=== PATIENT | female | born 1940 | race Caucasian/White ===

== ENCOUNTER → 2016-10-20 | Outpatient (CLI) | payer OTHER ==
[~2016-10-20] MED LIST: AMBIEN 5 MG TABL5 MG PO; AMLODIPINE BESY10 MG PO; ASPIRIN EC81 M1 PO; ATIVAN0.5 MG PO; BACTRIM DS TAB1 EACH PO; BACTRIM OR; BACTROBAN NASAL1 GM; BISOPROLOL FUMAR5 MG; CELEXA 20 MG TA20 M1; GABAPENTIN100 MG; HCTZ; HYDROXYZINE HCL10 M1 PO; LEXAPRO 10 MG T10 MG PO; MICARDIS 80 MG80 MG PO; MIRALAX255 GM; NORVASC 5 MG TAB5 MG PO; NYSTATIN 1100000 U/M PO; ORAMORPH SR15 M1; OXYBUTYNIN 5 MG5 M1; OXYCODONE HCL 55 MG PO; PENICILLIN VK250 MG PO; TRAMADOL 50 MG50 MG PO; VOLTAREN GEL 1100 G1 TOP; ZIAC 2.5-6.251 EACH PO
== END ==
LOC: RAD 11:59 → PULREHAB 11:59
DX: R06.00 Dyspnea, unspecified (principal); R06.02 Shortness of breath

== ENCOUNTER → 2016-10-23 | Outpatient (CLI) | payer OTHER ==
[2016-10-23 11:59] LABS: ABG SAMPLE TYPE ARTERIAL; BE(vivo) 0.5 mmol/L (-2 to +3); LACTATE 1.74 mmol/L (0.5-2.0); O2(CT) 19.2 mL/dL (15.0-23.0); PCO2 40.1 mmHg (35.0-45.0); PO2 71.4 mmHg (80.0-100.0); pH 7.413 (7.360-7.450); sO2 94.6 % (92.0-98.0); tCO2 26.3 mmol/L (24.0-30.0)
[2016-10-23 12:01] LABS: STICK SITE L.BRACHIAL
== END ==
LOC: PUL 11:37
PROVIDERS: Internal Medicine Pulmonary Disease
DX: R06.00 Dyspnea, unspecified (principal)

== ENCOUNTER → 2016-10-29 | Outpatient (CLI) | payer OTHER | LOC: SLEEPLAB 18:54 | DX: G47.33 Obstructive sleep apnea (adult) (pediatric) (principal) ==

== ENCOUNTER → 2016-11-10 | Outpatient (CLI) | payer OTHER | LOC: SLEEPLAB 21:16 | DX: G47.30 Sleep apnea, unspecified (principal) ==

== ENCOUNTER → 2016-12-06 | Outpatient (CLI) | payer OTHER | LOC: RAD 12:25 | DX: J44.9 Chronic obstructive pulmonary disease, unspecified (principal) ==

== ENCOUNTER → 2017-03-15 | Outpatient (CLI) | payer OTHER ==
[~2017-03-15] MED LIST changes: +ACCUNEB SO1.25 MG/1 INH; +ANORO ELLIPTA1 EACH; +ANORO ELLIPTA1 EACH INH; +ASPIR 8181 MG PO; +ATORVASTATIN CA40 MG PO; -BISOPROLOL FUMAR5 MG; +BISOPROLOL FUMAR5 MG PO; +CELEXA20 MG PO; +CLEOCIN HCL150 MG PO; +FLOMAX0.4 MG PO; +HYDROCODON-ACE1 EAC8 PO; +LEVAQUIN 500 M500 M2 PO; +MUCINEX600 MG PO; +OXYGEN NASAL; +PREDNISONE 20 M20 MG PO; +PROMS25 WY RECTAL; +QVAR REDIHALE10.6 G1 INH; +VENTOLIN HFA 1818 GM INH
== END ==
LOC: RAD 14:01
DX: J98.11 Atelectasis (principal); R91.8 Other nonspecific abnormal finding of lung field

== ENCOUNTER → 2017-03-24 | Outpatient (CLI) | payer OTHER | LOC: SLEEPLAB 15:48 | DX: G47.33 Obstructive sleep apnea (adult) (pediatric) (principal) ==

== ENCOUNTER 2017-04-22 09:48 | Inpatient (IN) | payer OTHER ==
[~2017-04-22] VITALS: Ht 157.5 cm; Wt 61.7 kg
--- NOTE | ~2017-04-22 | HC ---
[facility] [place] [address] CONSULTATION Name: ANAND POON Room #: 364-P ADM IN M.R.#: [id number] Admission: 04/22/17 Attend Phys: Jerel Zhang MD Discharge: Date of : 40 Report #: [id number] THIS REPORT FOR: //name// CC: [facility] Jerel Zhang MD DATE OF SERVICE: 04/22/2017 REASON FOR CONSULTATION: Otolaryngic followup with recent exacerbation of chronic obstructive pulmonary disease. HISTORY OF PRESENT ILLNESS: The patient is a 76-year-old female presenting to the Emergency Department with an exacerbation of her chronic obstructive pulmonary disease, complaining of shortness of breath beginning about 2:00 this morning. She felt that this gave her a panic attack. She felt that it was hard to handle her secretions. She has had no dysphagia for solids or liquids. The patient underwent a laryngoscopy with excision of Carol space edema on 04/20/2017. She was instructed strict vocal rest and has been compliant with this. She had done well through the course of Sunday and Sunday, but during the night began noticing increasing shortness of breath. The patient has chronic COPD and is on 2 liter home oxygen. She did try the oxygen, but felt that this was not relieving the symptoms and presented. She did not have any systemic symptoms of fever, chills, or night sweats. She had no other upper respiratory symptoms. Chest x-ray was done in the Emergency Department showing a right basilar non-consolidative infiltration as well as an indeterminate right costophrenic angle lucency, 5 cm. This is a new finding from a chest x-ray done in March. Pulmonary cavitation was questioned. The patient has been seen by her director advanced, Dr. Mccarthy. In the Emergency Department, the patient was evaluated and treated with respiratory treatments including albuterol and racemic epinephrine; in addition IV Solu-Medrol was given. The patient did notice an improvement in symptoms and now at 1630 when she is being evaluated in her hospital room, symptoms are much improved. The patient has been begun on empiric Levaquin 500 mg every day by Dr. Mccarthy. There was no sign of pulmonary embolization. EKG was also done showing nonspecific ST and T-wave abnormalities. There were no significant acute changes. Serum electrolytes were normal with the exception of an elevated glucose on IV. CBC showed a white count of 8600 with a hemoglobin of 3.3. ABG was also done showing a pO2 of 94 with a pCO2 of 42 and a pH of 7.36. PAST MEDICAL HISTORY: Significant for: 1. Chronic obstructive pulmonary disease, oxygen dependent; bilateral Carol space edema secondary to tobacco abuse, status post laryngoscopy uncomplicated [address] [address] CONSULTATION Name: ANAND POON Room #: 364-P ADM IN M.R.#: [id number] Admission: 04/22/17 Attend Phys: Jerel Zhang MD Discharge: Date of : 40 Report #: [id number] on 04/20/2017. 2. Hypertension. 3. Tobacco abuse. 4. Anxiety and depression. MEDICATIONS: In her MAR. ALLERGIES: NAPROSYN. SOCIAL HISTORY: She has a greater than 40-year pack-year history of smoking and continues to smoke even despite admonitions to stop. She does use alcohol only rarely. She has a supportive family. REVIEW OF SYSTEMS: She is no longer complaining of shortness of breath in her hospital room. She is having some chest discomfort from her rapid breathing over the course of the last 12 hours. PHYSICAL EXAMINATION: VITAL SIGNS: Show a temperature of 98.4, pulse of 81, blood pressure 136/63, respiration 22, 93% saturation. HEAD: She is normocephalic. EYES: Pupils equal, round, reactive to light. OTOLOGIC: Normal tympanic membrane. NOSE: Deviated septum, nonobstructing, no congestion. ORAL CAVITY: No mucosal lesions, no hypopharyngeal swelling. NECK: Without adenopathy. Larynx is nontender. NEUROLOGIC: Cranial nerves 2-12 intact. Motor and sensory and cerebellar exams are normal. ASSESSMENT: 1. Exacerbation of chronic obstructive pulmonary disease with shortness of breath and anxiety today, improved post treatment. 2. New cavitary lesion on right chest x-ray that will require further workup. We will defer to Dr. Mccarthy, her director advanced. 3. Carol space edema, status post direct laryngoscopy with excision on 04/20/2017. The patient did well postoperatively until this morning. Pathology is pending. 4. Severe tobacco abuse. PLAN: 1. Admission for supportive care. 2. Oxygenation. 3. The patient has been consulted to her director advanced, Dr. Mccarthy. She will require further workup of this finding on chest x-ray. 4. We will plan to follow along. I would like her to continue voice rest to complete 72 hours, which would be Sunday. [address] [address] CONSULTATION Name: ANAND POON Room #: 364-P ADM IN M.R.#: [id number] Admission: 04/22/17 Attend Phys: Jerel Zhang MD Discharge: Date of : 40 Report #: [id number] 5. Continue IV Solu-Medrol or Decadron as well as empiric antibiotics. I appreciate the consultation. <ELECTRONICALLY SIGNED> By: Randal Franco MD 04/23/17 1715 1637 [id number] Randal Franco MD /nt
--- NOTE | ~2017-04-22 | H ---
[facility] [place] [address] HISTORY AND PHYSICAL Name: ANAND POON Room #: 364-P ADM IN M.R.#: [id number] Admission: 04/22/17 Attend Phys: Jerel Zhang MD Discharge: Date of : 40 Report #: [id number] THIS REPORT FOR: //name// CC: Glen Zhang DATE OF SERVICE: 04/22/2017 CHIEF COMPLAINT: Shortness of breath. HISTORY OF PRESENT ILLNESS: The patient is a 76-year-old female who was admitted through the Emergency Room with shortness of breath. Symptoms began in the middle of the night on the day of presentation, she described as "panic attack." She had a lot of cough and congestion. She had recently undergone the ENT procedure with what sounds like some type of biopsy of the larynx. She has had no fever or chills, denied any chest pain. PAST MEDICAL HISTORY: COPD, obstructive sleep apnea on CPAP, GERD, carotid artery disease, peripheral arterial disease. She has had a femoral endarterectomy and a previous fem-pop bypass in 2011. History of MRSA skin lesion, history of C. diff, hypertension, and dyslipidemia. PAST SURGICAL HISTORY: As above. FAMILY HISTORY: Noncontributory. SOCIAL HISTORY: A 90-[id number] history of smoking, still a current smoker. Denies chronic alcohol use. ALLERGIES: CEFUROXIME, NITROFURANTOIN, NAPROXEN. MEDICATIONS: Clindamycin, Ambien, albuterol, Lipitor, hydrocodone, bisoprolol, hydroxyzine, QVAR, Celexa, Flomax, aspirin. REVIEW OF SYSTEMS: She complains of a sore throat, otherwise no headache, chest pain, abdominal pain, nausea, vomiting, diarrhea, constipation, dysuria, syncope. OBJECTIVE: VITAL SIGNS: Temperature 36.7, pulse 77, respirations 20, blood pressure 127/54, O2 sat 97% on 3 liters nasal cannula. GENERAL: She is awake and alert, in no distress. HEAD AND NECK: Unremarkable. LUNGS: Have expiratory wheezing. HEART: Regular, no murmur. ABDOMEN: Soft, normoactive bowel sounds. [address] [address] HISTORY AND PHYSICAL Name: ANAND POON Room #: 364-P [facility] IN M.R.#: [id number] Admission: 04/22/17 Attend Phys: Jerel Zhang MD Discharge: Date of : 40 Report #: [id number] EXTREMITIES: No edema. NEUROLOGIC: Motor strength 4/[address] and LABORATORY DATA: Reviewed. ASSESSMENT: 1. Chronic obstructive pulmonary disease exacerbation. 2. Hypertension. 3. Recent laryngoscopy. 4. Peripheral artery disease. PLAN: Steroids, nebulizers, and home medications have been ordered. Dr. rFanco has assessed her and pathology is pending. I have asked Dr. Mccarthy to see her and comment on the CT. <ELECTRONICALLY SIGNED> By: Glen Delgado MD 04/24/17 0948 1248 1259 Glen Delgado MD /nt
--- NOTE | ~2017-04-22 | D ---
[facility] [place] [address] DISCHARGE SUMMARY Name: ANAND POON Room #: 364-P [facility] IN M.R.#: [id number] Admission: 04/22/17 Attend Phys: Jerel Zhang MD Discharge: 04/25/17 Date of : 40 Report #: [id number] THIS REPORT FOR: //name// CC: Glen Zhang FINAL DIAGNOSIS: Chronic obstructive pulmonary disease exacerbation. HOSPITAL COURSE: This patient was admitted with shortness of breath. She was diagnosed and treated for COPD exacerbation. CT of the chest was obtained. Dr. Mccarthy reviewed this with the patient. There was some question of a pulmonary nodule that he will follow as an outpatient with CT in [address] Franco followed her up from recent laryngeal biopsy. Pathology was negative. She was treated symptomatically. PHYSICAL EXAMINATION: GENERAL: On the day of discharge, she was awake and alert, in no distress. VITAL SIGNS: Stable. LUNGS: Had expiratory wheezing. HEART: Regular. ABDOMEN: Soft, normoactive bowel sounds. EXTREMITIES: No edema. DISPOSITION: She will be discharged home with diet, activity as tolerated. Resume all home medications with Levaquin for 1 week and a prednisone taper. Follow up with me in 2 weeks. She is instructed to stop smoking. <ELECTRONICALLY SIGNED> By: Glen Delgado MD 04/27/17 0921 1344 1355 Glen Delgado MD /regulo
--- NOTE | ~2017-04-22 | EKG ---
[place] [address] [facility] [address] ELECTROCARDIOGRAM REPORT Name: ANAND POON Room #: 364-P ADM IN M.R.#: [id number] Admission: 04/22/17 Attend Phys: Jerel Zhang MD Discharge: Date of : 40 Report #: [id number] THIS REPORT FOR: //name// [facility] ED Test Date: 2017-04-22 Test Time: 10:06:35 Pat Name: ANAND POON Department: Room: 364 Gender: F Realtime Court Reporter: Georgina BEAL : 1940 Requested By: Martinez Ryan Order Number: [id number] MD: James Lutz Measurements Intervals [place] Rate: 85 P: 75 [place]: 124 QRS: 47 QRSD: 90 T: 69 QT: 378 QTc: 450 Interpretive Statements Sinus rhythm Nonspecific ST and T wave abnormality Compared to ECG 10/05/2009 17:24:27 Anterolateral T wave inversion is no longer present Electronically Signed On 04-22-2017 13:48:31 CDT by James Lutz [email or web address] <ELECTRONICALLY SIGNED> By: James Lutz MD, [facility] 04/22/17 1348 1006 1006 James Lutz MD, [facility] /EPI
--- NOTE | ~2017-04-22 | HC ---
[facility] [place] [address] CONSULTATION Name: ANAND POON Room #: 364-P [facility] IN M.R.#: [id number] Admission: 04/22/17 Attend Phys: Jerel Zhang MD Discharge: 04/25/17 Date of : 40 Report #: [id number] THIS REPORT FOR: //name// CC: Glen Zhang DATE OF SERVICE: 04/23/2017 REFERRING PROVIDERS: Dr. Glen Delgado, Dr. Joby Mccarthy as well as Dr. Randal Franco. REASON FOR CONSULTATION: COPD exacerbation. CHIEF COMPLAINT: Shortness of breath and cough. HISTORY OF PRESENT ILLNESS: Our group was asked to see the patient in consultation while hospitalized at [facility]. The patient is a very pleasant 76-year-old woman presented to the Emergency Department yesterday morning with complaints of increasing shortness of breath and cough. Apparently, he had had a laryngeal procedure done on Sunday, 20 April and subsequently doing reasonably well; however, the following evening, had increasing shortness of breath, which she describes as a panic attack, some cough productive of germain sputum, presented to the Emergency Department. A chest radiograph revealed what appeared to be a basilar infiltrate. CT of the chest revealed diffuse emphysema, some basilar fibrosis and some scattered small pulmonary nodules. She was started on Levaquin for acute exacerbation of COPD and subsequently also on bronchodilators. She notes typically being on Anoro and QVAR at home as well as supplemental oxygen at 2 liters nasal cannula. She notes that the DuoNeb she has been receiving has actually caused more anxiety and agitation, not relieved a lot of her dyspnea. No fevers, chills or sweats. As mentioned, she has some cough productive of some germain sputum at this time, but she was able to produce for me during my interview. CURRENT MEDICATIONS: 1. DuoNeb q.4 hours. 2. Aspirin 81 mg daily. 3. Atarax p.r.n. 4. Lipitor 40 mg daily. 5. Bisoprolol 2.5 mg daily. 6. Pulmicort 0.5 mg twice daily, nebulized. 7. Celexa 20 mg at bedtime. 8. Cleocin 300 mg t.i.d. 9. Enoxaparin 40 mg daily. 10. Flomax 0.4 daily. 11. Hydrocodone p.r.n. 12. Levaquin 500 mg daily. [address] [address] CONSULTATION Name: ANAND POON Room #: 364-P [facility] IN M.R.#: [id number] Admission: 04/22/17 Attend Phys: Jerel Zhang MD Discharge: 04/25/17 Date of : 40 Report #: [id number] 13. Solu-Medrol 62.5 q.8 hours. 14. Norvasc 10 mg daily. PAST MEDICAL HISTORY: 1. Severe COPD, emphysema predominant. 2. Obstructive sleep apnea, apnea-hypopnea index of 19.5. 3. Chronic hypoxemic respiratory failure. 4. 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 5. Chronic back pain. 6. Coronary artery disease. 7. Depression. 8. Hyperlipidemia. 9. Peripheral vascular disease. 10. History of ventral hernia. 11. History of peripheral artery atherectomy. 12. History of fem-pop bypass. SOCIAL HISTORY: The patient was an active smoker, about a pack per day. No alcohol consumption. FAMILY HISTORY: Negative for any significant pulmonary disease. REVIEW OF SYSTEMS: CONSTITUTIONAL: No fevers, chills or sweats. ENT: No upper respiratory congestion, recent surgery noted. CARDIOVASCULAR: No chest pains, palpitations, some chest tightness. GASTROINTESTINAL: No nausea, vomiting, diarrhea, constipation, abdominal pain, noted ventral hernia. GENITOURINARY: No dysuria, no frequency, hematuria. INTEGUMENT: Denies any new rash. MUSCULOSKELETAL: No joint pains or swelling. PHYSICAL EXAMINATION: VITAL SIGNS: Afebrile, pulse 70s, respiratory rate 20, blood pressure 127/54 and oxygen saturation 97% on 3 liters. GENERAL: This is a pleasant elderly woman, does not appear in distress, resting in bed. HEENT: Clear oropharynx. No thrush, but hoarse voice noted. NECK: Supple, no lymphadenopathy. LUNGS: Diminished, prolonged expiratory phase and diffuse expiratory wheezes noted. CARDIOVASCULAR: Rate is regular. No murmurs appreciated. ABDOMEN: Soft, nontender, no masses, large ventral hernia noted. EXTREMITIES: Warm, 2+ pulses, no edema. LABORATORY DATA: CT scan as described with multiple small nodules and diffuse [address] [address] CONSULTATION Name: ANAND POON Room #: 364-P [facility] IN [facility].#: [id number] Admission: 04/22/17 Attend Phys: Jerel Zhang MD Discharge: 04/25/17 Date of : 40 Report #: [id number] emphysema and some mild pulmonary fibrotic changes. White blood cell count 9000, hemoglobin 13, hematocrit 40, platelet count 260. Sodium 138, potassium 4.1, chloride 102, bicarbonate 26, BUN 17, creatinine 1.1, glucose 117. Troponin was 0.39. Arterial blood gas on 2 liters on admission revealed pH 7.36, pCO2 of 42, pO2 95, bicarbonate 23. IMPRESSION: 1. Acute exacerbation of chronic obstructive pulmonary disease, likely due to lower respiratory infection. 2. Recent laryngeal procedure. 3. Elevated troponin. 4. Sleep apnea. 5. History of coronary and peripheral vascular disease. 6. Chronic hypoxemic respiratory failure. SUGGESTIONS: 1. Continue systemic steroids. 2. Bronchodilators. 3. Continue with Levaquin and clindamycin, might consider discontinuing Levaquin as the patient improves. 4. Follow chest radiographs. 5. We will need some sort of followup imaging regarding pulmonary nodule at some point in the future. 6. Dr. Mccarthy to assume care of this patient tomorrow. <ELECTRONICALLY SIGNED> By: Tank Muhammad MD 04/26/17 1122 1436 1545 Tank Muhammad MD /nt
[~2017-04-22 09:48] MED LIST changes: -ANORO ELLIPTA1 EACH; -ASPIR 8181 MG PO; -LEVAQUIN 500 M500 M2 PO; -MUCINEX600 MG PO; -PREDNISONE 20 M20 MG PO
[2017-04-22 09:51] VITALS: BP 134/69
[2017-04-22 10:06] LABS: HEMOGLOBIN 13.3 gm/dL (12.0-15.0); MCH 26.5 pg (26.0-34.0); MCHC 33.2 g/dL (28.0-37.0); MCV 79.7 fL (80.0-100.0); RBC 5.02 mil/uL (4.20-5.00); RDW 17.2 % (10.5-14.5); WBC 8.6 thou/uL (4.0-11.0)
[2017-04-22 10:08] LABS: BE(vivo) -2.1 mmol/L (-2 to +3); HCO3 23.3 mmol/L (22.0-26.0); PCO2 42.1 mmHg (35.0-45.0); PO2 94.6 mmHg (80.0-100.0); pH 7.361 (7.360-7.450)
[2017-04-22 10:21] LABS: CALCIUM 9.2 mg/dL (8.5-10.1); CREATININE 1.1 mg/dL (0.6-1.0); POTASSIUM 4.1 mmol/L (3.5-5.1)
[2017-04-22 10:30] LABS: TROPONIN-I 0.39 ng/mL (<0.06)
[2017-04-22 14:22] VITALS: BP 136/63
[2017-04-22] MEDS ORDERED: ASPIR 8181 MG PO (14:37)
[2017-04-22] MEDS ORDERED: CLEOCIN HCL150 MG PO (14:41)
[2017-04-22] MEDS ORDERED: AMLODIPINE BESY10 MG PO (15:25)
[2017-04-22 19:42] VITALS: BP 114/55
[2017-04-23 03:05] VITALS: BP 110/54
[2017-04-23 08:00] VITALS: BP 133/67
[2017-04-23 12:26] VITALS: BP 127/54
[2017-04-23 16:13] VITALS: BP 130/57
[2017-04-23 20:08] VITALS: BP 139/63
[2017-04-24] VITALS (7 sets, daily range): BP systolic 134–144; BP diastolic 52–71
[2017-04-24 06:41] LABS: HEMOGLOBIN 12.3 gm/dL (12.0-15.0); MCHC 32.3 g/dL (28.0-37.0); MCV 80.6 fL (80.0-100.0); RBC 4.72 mil/uL (4.20-5.00); WBC 4.8 thou/uL (4.0-11.0)
[2017-04-24 06:51] LABS: CALCIUM 8.9 mg/dL (8.5-10.1); CREATININE 1.1 mg/dL (0.6-1.0); POTASSIUM 4.5 mmol/L (3.5-5.1)
[2017-04-25 04:45] VITALS: BP 124/69
[2017-04-25 07:58] VITALS: BP 135/53
[2017-04-25 10:45] VITALS: BP 132/52
[2017-04-25] MEDS ORDERED: MUCINEX600 MG PO (13:13)
[2017-04-25] MEDS ORDERED: LEVAQUIN 500 M500 M2 PO (13:13)
[2017-04-25] MEDS ORDERED: PREDNISONE 20 M20 MG PO (13:13)
[2017-04-25 13:47] VITALS: BP 132/52
== END 2017-04-25 14:41 | disposition home or self-care (01) | DRG 189 ==
LOC: ER 09:48 → 3W 12:02 → EROBS 12:02 → 3W 13:26
PROVIDERS: Emergency Medicine; Internal Medicine Geriatric Medicine
PROC: 5A09357 Assistance with Respiratory Ventilation, Less than 24 Consecutive Hours, Continuous Positive Airway Pressure (ICD-10-PCS; principal; 2017-04-25)
DX: J96.21 Acute and chronic respiratory failure with hypoxia (principal); J44.1 Chronic obstructive pulmonary disease with (acute) exacerbation; I73.9 Peripheral vascular disease, unspecified; I10 Essential (primary) hypertension; E78.5 Hyperlipidemia, unspecified; K21.9 Gastro-esophageal reflux disease without esophagitis; F32.9 Major depressive disorder, single episode, unspecified; F17.210 Nicotine dependence, cigarettes, uncomplicated; F41.9 Anxiety disorder, unspecified; G47.33 Obstructive sleep apnea (adult) (pediatric); M54.9 Dorsalgia, unspecified; G89.29 Other chronic pain; J22 Unspecified acute lower respiratory infection; I25.10 Atherosclerotic heart disease of native coronary artery without angina pectoris; F41.0 Panic disorder [episodic paroxysmal anxiety]; Z79.899 Other long term (current) drug therapy; Z90.710 Acquired absence of both cervix and uterus; Z98.42 Cataract extraction status, left eye; Z88.8 Allergy status to other drugs, medicaments and biological substances; Z99.81 Dependence on supplemental oxygen
CPT/HCPCS: 10879; 50010; 50101; 62110; 62900; 70005

== ENCOUNTER 2017-07-24 02:48 | Inpatient (IN) | payer OTHER ==
[2017-07-24] VITALS (7 sets, daily range): BP systolic 110–152; BP diastolic 49–67
[~2017-07-24] VITALS: Ht 157.5 cm; Wt 65.1 kg
--- NOTE | ~2017-07-24 | HC ---
[facility] [place] [address] CONSULTATION Name: ANAND POON Room #: 349-I ADM IN M.R.#: [id number] Admission: 07/24/17 Attend Phys: Glen Delgado MD Discharge: Date of : 40 Report #: [id number] THIS REPORT FOR: //name// CC: Glen Delgado DATE OF SERVICE: 07/24/2017 REASON FOR CONSULTATION: Abnormal EKG. HISTORY OF PRESENT ILLNESS: The patient is a 77-year-old woman with a history of significant COPD and hypertension. She has a history of peripheral vascular disease with peripheral revascularization, as well as a known chronic occlusion of the right internal carotid artery. She now presents with fairly sudden onset nausea and vomiting. She thinks that she may have eaten a bad steak for dinner last night. She presented to the emergency department where an EKG demonstrated LVH with repolarization abnormality. I was asked to see her in this regard. She denies chest pain, pressure or ischemic type symptoms. No heart failure symptoms, palpitations, near syncope or syncope. ALLERGIES: She is allergic to CEFUROXIME, NITROFURANTOIN, and NAPROSYN. MEDICATIONS: Albuterol nebulizer, atorvastatin 40 mg daily, bisoprolol 2.5 mg daily, hydroxyzine 10 mg daily, QVAR 2 puffs twice daily, citalopram 20 mg daily, albuterol, Flomax 0.4 mg daily, and aspirin 81 mg daily, Anoro Ellipta one inhalation daily, and amlodipine 10 mg daily. PAST MEDICAL HISTORY: Medical records have been reviewed and include a history of carotid disease, fem-popliteal bypass in 2012, dyslipidemia, sleep apnea, severe COPD. SOCIAL HISTORY: She is an ongoing smoker. FAMILY HISTORY: Unremarkable for premature coronary disease. REVIEW OF SYSTEMS: All systems negative except as that noted above. PHYSICAL EXAMINATION: GENERAL: A pleasant woman in no distress. VITAL SIGNS: Blood pressure is 150/60, heart rate is 76 and regular. She is afebrile, 5 feet 2 inches tall, 143 pounds. HEENT: There are neither xanthelasma, subcutaneous xanthomata, oral mucosal or digital cyanosis or kyphoscoliosis present. CHEST: Clear to auscultation and percussion. CARDIAC: Regular rate and rhythm with normal S1, S2. NECK: Jugular venous pressure is not elevated. ABDOMEN: Soft and nontender. Ventral hernias are noted. [facility] [address] [place] [address] CONSULTATION Name: ANAND POON Room #: 349-I [facility] IN ..#: [id number] Admission: 07/24/17 Attend Phys: Glen Delgado MD Discharge: Date of : 40 Report #: [id number] EXTREMITIES: Without cyanosis or clubbing. Radial pulses are 2+. NEUROLOGIC: She is alert with a nonfocal exam. LABORATORY DATA: Sodium is 139, potassium 3.6, creatinine 1.1, troponin of 0. White count 12.8, hemoglobin 12, hematocrit 38, platelet count 275. IMAGING DATA: CT of the abdomen demonstrates several ventral hernias, no evidence of bowel obstruction, and fatty infiltration of the liver. IMPRESSION: 1. Nausea, vomiting; abdominal pain, possible gastroenteritis. 2. Hypertension. 3. Abnormal EKG consistent with left ventricular hypertrophy with strain. 4. Peripheral vascular disease with peripheral revascularization; known carotid occlusion. RECOMMENDATIONS: 1. Resume usual blood pressure medicines. 2. No further cardiovascular testing at this point. I suspect that her presenting symptoms are on the basis of an acute GI illness such as gastroenteritis. I have discussed these issues with the patient. Thank you for asking me to participate in her care. <ELECTRONICALLY SIGNED> By: James Lutz MD, [facility] 07/24/17 1637 0745 0913 James Lutz MD, FACC /nt
--- NOTE | ~2017-07-24 | EKG ---
[place] [address] [facility] [place] [address] ELECTROCARDIOGRAM REPORT Name: ANAND POON Room #: 349-I ADM IN M.R.#: [id number] Admission: 07/24/17 Attend Phys: Glen Delgado MD Discharge: Date of : 40 Report #: [id number] THIS REPORT FOR: //name// [facility] ED Test Date: 2017-07-24 Test Time: 04:48:31 Pat Name: ANAND POON Department: Room: 349 I Gender: F Laboratory Engineer: ANN : 1940 Requested By: Gilbert Munguia Order Number: [id number] MD: James Lutz Measurements Intervals [place] Rate: 75 P: 90 [place]: 168 QRS: 60 QRSD: 85 T: 197 QT: 421 QTc: 471 Interpretive Statements Sinus rhythm LVH with repolarization abnormality versus ischemia Compared to ECG 04/22/2017 10:06:35 No significant change was found Electronically Signed On 07-24-2017 15:49:17 CDT by James Lutz [email or web address] <ELECTRONICALLY SIGNED> By: James Lutz MD, [facility] 07/24/17 1549 0448 0448 James Lutz MD, [facility] /EPI
--- NOTE | ~2017-07-24 | EKG ---
[place] [address] [place] [address] ELECTROCARDIOGRAM REPORT Name: ANAND POON Room #: 349-I ADM IN .R.#: [id number] Admission: 07/24/17 Attend Phys: Glen Delgado MD Discharge: Date of : 40 Report #: [id number] THIS REPORT FOR: //name// [facility] ED Test Date: 2017-07-24 Test Time: 03:14:49 Pat Name: ANAND POON Department: Room: Gender: F Supervisor [employer]: ANN : 1940 Requested By: Gilbert Munguia Order Number: [id number] MD: James Lutz Measurements Intervals [place] Rate: 66 P: 86 [place]: 169 QRS: 62 QRSD: 95 T: 106 QT: 434 QTc: 455 Interpretive Statements Sinus rhythm LVH with repolarization abnormality Compared to ECG 04/22/2017 10:06:35 Lateral T wave inversion is now present Electronically Signed On 07-24-2017 15:48:44 CDT by James Lutz [email or web address] <ELECTRONICALLY SIGNED> By: James Lutz MD, [facility] 07/24/17 1548 3 3 James Lutz MD, [facility] /EPI
--- NOTE | ~2017-07-24 | H ---
[facility] [place] [address] HISTORY AND PHYSICAL Name: ANAND POON Room #: 349-I ADM IN M.R.#: [id number] Admission: 07/24/17 Attend Phys: Glen Delgado MD Discharge: Date of : 40 Report #: [id number] THIS REPORT FOR: //name// CC: Glen Delgado DATE OF SERVICE: 07/24/2017 CHIEF COMPLAINT: Abdominal pain. HISTORY OF PRESENT ILLNESS: The patient is a 77-year-old female who came to the Emergency Room with abdominal pain. Symptoms awoke her from sleep; earlier this morning, she had pain in the mid abdomen. There was a little episode of nausea and diaphoresis and then she came to the Emergency Room. She has a known history of COPD and wears chronic oxygen at home. She has a history of peripheral vascular disease with prior fem-pop in 2011. She was also noted to have a large ventral hernia. PAST MEDICAL HISTORY: COPD, hypertension, coronary artery disease, peripheral artery disease, prior fem-pop bypass, obstructive sleep apnea, CPAP use, hiatal hernia, GERD, ventral hernia. PAST SURGICAL HISTORY: Hysterectomy, femoral endarterectomy with fem-pop in 2011. FAMILY HISTORY: Noncontributory. SOCIAL HISTORY: A 51-heie-dxua history of smoking. No chronic alcohol use. ALLERGIES: CEFUROXIME, NITROFURANTOIN, AND NAPROXEN. MEDICATIONS: Mucinex, Ambien, DuoNeb, Lipitor, hydrocodone, bisoprolol, hydroxyzine QVAR, Celexa, albuterol, Flomax, aspirin, amlodipine, Anoro Ellipta inhaler. REVIEW OF SYSTEMS: Denies headache, chest pain, shortness of breath, dysuria, myalgias, arthralgias, syncope or fall. OBJECTIVE: VITAL SIGNS: Temperature 36.8, pulse 58, respirations 20, blood pressure was /56, O2 sat 90% on 2 liters nasal cannula. GENERAL: She is awake and alert, in no distress. HEAD AND NECK: Unremarkable. LUNGS: Clear. HEART: Regular. ABDOMEN: Protuberant, soft, normoactive bowel sounds. There is a reducible ventral hernia in the midline. [facility] [address] [place] [address] HISTORY AND PHYSICAL Name: ANAND POON Room #: [address] [place] [address] [place] [facility].#: [id number] Admission: 07/24/17 Attend Phys: Glen Delgado MD Discharge: Date of : 40 Report #: [id number] EXTREMITIES: No cyanosis, clubbing or edema. NEUROLOGIC: Motor strength is 5/5 throughout. She has been assessed by Dr. Lutz, he does not feel further cardiac workup is indicated. LABORATORY DATA: CT of the abdomen, there were gastric and bowel loops containing ventral hernias. There was no bowel obstruction or evidence of acute strangulation. ASSESSMENT: 1. Abdominal pain. 2. Ventral hernia. 3. Chronic obstructive pulmonary disease. 4. Hypertension. 5. Peripheral artery disease. PLAN: I will advance her diet this morning and resume her home medications. If she is able to tolerate well, we will discharge her later today with the consideration of outpatient surgical followup. <ELECTRONICALLY SIGNED> By: Glen Delgado MD 07/24/17 1252 [id number] Glen Delgado MD /nt
[~2017-07-24 02:48] MED LIST changes: +ASPIR 8181 MG PO; +LEVAQUIN 500 M500 M2 PO; +MUCINEX600 MG PO; +PREDNISONE 20 M20 MG PO
[2017-07-24 03:17] LABS: URINE BILIRUBIN NEGATIVE (Negative); URINE BLOOD NEGATIVE (Negative); URINE CLARITY CLEAR; URINE COLOR YELLOW; URINE GLUCOSE-RANDOM* NEGATIVE (Negative); URINE KETONES NEGATIVE (Negative); URINE LEUKOCYTES-REFLEX NEGATIVE (Negative); URINE NITRITE-REFLEX NEGATIVE (Negative); URINE PROTEIN (DIPSTICK) NEGATIVE (Negative); URINE UROBILINOGEN 0.2 E.U./dl (0.2-1.0)
[2017-07-24 03:40] LABS: BASOPHILS 0.4 % (0.0-2.0); EOSINOPHILS 1.5 % (0.0-3.0); HEMATOCRIT 38.4 % (37.0-47.0); HEMOGLOBIN 12.6 gm/dL (12.0-15.0); LYMPHOCYTES 14.2 % (24.0-44.0); MCH 26.5 pg (26.0-34.0); MCHC 32.8 g/dL (28.0-37.0); MCV 80.8 fL (80.0-100.0); MONOCYTES 5.5 % (1.0-8.0); PLATELET COUNT 275 thou/uL (150-400); POLYS 78.4 % (36.0-66.0); RBC 4.75 mil/uL (4.20-5.00); RDW 16.2 % (10.5-14.5); WBC 12.8 thou/uL (4.0-11.0)
[2017-07-24 03:47] LABS: ANION GAP 10 mmol/L (7-16); BUN 13 mg/dL (7-18); CALCIUM 8.9 mg/dL (8.5-10.1); CHLORIDE 101 mmol/L (98-107); CO2 28 mmol/L (21-32); CREATININE 1.1 mg/dL (0.6-1.0); GLUCOSE 183 mg/dL (74-106); POTASSIUM 3.6 mmol/L (3.5-5.1); SODIUM 139 mmol/L (136-145)
[2017-07-24 03:56] LABS: ALBUMIN 2.9 g/dL (3.4-5.0); LIPASE 138 U/L (73-393); MAGNESIUM 2.3 mg/dL (1.8-2.4); SGOT 14 U/L (15-37); SGPT 18 U/L (30-65); TOTAL BILIRUBIN 0.3 mg/dL (<0.1-1.0); TOTAL PROTEIN 6.9 g/dL (6.4-8.2); TROPONIN-I < 0.04 ng/mL (<0.06)
[2017-07-24 03:57] LABS: APTT 26.9 Seconds (24.5-32.8); PROTIME 9.7 Seconds (9.3-11.4)
[2017-07-24] MEDS ORDERED: ANORO ELLIPTA1 EACH (04:06)
== END 2017-07-24 17:17 | disposition home or self-care (01) | DRG 394 ==
LOC: ER 02:48 → EROBS 05:14 → 3W 05:14 → ENTRNSPT 16:34 → 3W 17:17
PROVIDERS: Emergency Medicine
DX: K43.9 Ventral hernia without obstruction or gangrene (principal); E46 Unspecified protein-calorie malnutrition; I10 Essential (primary) hypertension; E78.5 Hyperlipidemia, unspecified; I73.9 Peripheral vascular disease, unspecified; J44.9 Chronic obstructive pulmonary disease, unspecified; I25.10 Atherosclerotic heart disease of native coronary artery without angina pectoris; G47.33 Obstructive sleep apnea (adult) (pediatric); K21.9 Gastro-esophageal reflux disease without esophagitis; F32.9 Major depressive disorder, single episode, unspecified; Z90.710 Acquired absence of both cervix and uterus; Z98.41 Cataract extraction status, right eye; Z98.42 Cataract extraction status, left eye; Z86.14 Personal history of Methicillin resistant Staphylococcus aureus infection; Z79.82 Long term (current) use of aspirin; Z79.899 Other long term (current) drug therapy; Z88.0 Allergy status to penicillin; Z88.8 Allergy status to other drugs, medicaments and biological substances; Z99.81 Dependence on supplemental oxygen; Z95.828 Presence of other vascular implants and grafts; Z68.26 Body mass index [BMI] 26.0-26.9, adult
CPT/HCPCS: 10879

== ENCOUNTER → 2017-12-14 | Outpatient (CLI) | payer OTHER ==
[~2017-12-14] MED LIST changes: +ANORO ELLIPTA1 EACH
== END ==
LOC: CAT 11:21
DX: K43.9 Ventral hernia without obstruction or gangrene (principal); N28.1 Cyst of kidney, acquired

== ENCOUNTER → 2019-04-04 | Outpatient (CLI) | payer OTHER | LOC: CAT 10:47 | DX: J43.8 Other emphysema (principal); K44.9 Diaphragmatic hernia without obstruction or gangrene; R91.1 Solitary pulmonary nodule ==

== ENCOUNTER → 2019-04-14 | Outpatient (CLI) | payer OTHER | LOC: SJCVC 10:18 | DX: R94.31 Abnormal electrocardiogram [ECG] [EKG] (principal); I10 Essential (primary) hypertension; I65.23 Occlusion and stenosis of bilateral carotid arteries; I25.10 Atherosclerotic heart disease of native coronary artery without angina pectoris; E78.5 Hyperlipidemia, unspecified; G47.33 Obstructive sleep apnea (adult) (pediatric); I71.4 Abdominal aortic aneurysm, without rupture; J44.9 Chronic obstructive pulmonary disease, unspecified; F17.210 Nicotine dependence, cigarettes, uncomplicated; Z79.82 Long term (current) use of aspirin; Z79.899 Other long term (current) drug therapy ==

== ENCOUNTER → 2019-09-04 | Outpatient (CLI) | payer OTHER | LOC: CAT 10:13 | PROVIDERS: ATTEND Internal Medicine | DX: J43.8 Other emphysema (principal); K42.9 Umbilical hernia without obstruction or gangrene; K44.9 Diaphragmatic hernia without obstruction or gangrene; J98.4 Other disorders of lung; R91.1 Solitary pulmonary nodule ==

== ENCOUNTER → 2019-10-15 | Outpatient (CLI) | payer OTHER | LOC: SJCVCIMAG 08:15 | PROVIDERS: ATTEND Internal Medicine | DX: I08.1 Rheumatic disorders of both mitral and tricuspid valves (principal); R94.31 Abnormal electrocardiogram [ECG] [EKG]; I65.23 Occlusion and stenosis of bilateral carotid arteries; I25.10 Atherosclerotic heart disease of native coronary artery without angina pectoris; I10 Essential (primary) hypertension; E78.5 Hyperlipidemia, unspecified; G47.33 Obstructive sleep apnea (adult) (pediatric); I71.4 Abdominal aortic aneurysm, without rupture; F17.200 Nicotine dependence, unspecified, uncomplicated; Z79.899 Other long term (current) drug therapy ==

== ENCOUNTER → 2020-02-20 | Outpatient (CLI) | payer OTHER | LOC: CAT 10:57 | PROVIDERS: ATTEND Internal Medicine | DX: J43.9 Emphysema, unspecified (principal); R91.1 Solitary pulmonary nodule; I70.0 Atherosclerosis of aorta; M25.78 Osteophyte, vertebrae; M79.89 Other specified soft tissue disorders; J98.4 Other disorders of lung ==

== ENCOUNTER → 2020-04-15 | Outpatient (CLI) | payer OTHER | LOC: SJCVC 10:21 | PROVIDERS: ATTEND Internal Medicine | DX: R94.31 Abnormal electrocardiogram [ECG] [EKG] (principal); I25.10 Atherosclerotic heart disease of native coronary artery without angina pectoris; I65.23 Occlusion and stenosis of bilateral carotid arteries; I10 Essential (primary) hypertension; E78.5 Hyperlipidemia, unspecified; G47.33 Obstructive sleep apnea (adult) (pediatric); I71.4 Abdominal aortic aneurysm, without rupture; R60.0 Localized edema; J44.9 Chronic obstructive pulmonary disease, unspecified; F17.200 Nicotine dependence, unspecified, uncomplicated; F17.210 Nicotine dependence, cigarettes, uncomplicated; F32.9 Major depressive disorder, single episode, unspecified; Z79.82 Long term (current) use of aspirin; Z79.899 Other long term (current) drug therapy; Z88.1 Allergy status to other antibiotic agents; Z88.8 Allergy status to other drugs, medicaments and biological substances ==

== ENCOUNTER 2020-04-28 14:31 | Inpatient (IN) | payer OTHER ==
[~2020-04-28] VITALS: Ht 160 cm; Wt 52.9 kg
[2020-04-28 14:38] VITALS: BP 170/74
[2020-04-28 15:40] LABS: ABSOLUTE NEUTROPHILS 9.6 thou/uL (1.4-8.2); BASOPHILS 0.2 % (0.0-2.0); LYMPHOCYTES 8.9 % (24.0-44.0); MCH 29.5 pg (26.0-34.0); MCHC 33.3 g/dL (28.0-37.0); MCV 88.5 fL (80.0-100.0); MONOCYTES 5.5 % (1.0-8.0); PLATELET COUNT 188 thou/uL (150-400); POLYS 85.4 % (36.0-66.0); RBC 4.75 mil/uL (4.20-5.00); RDW 14.7 % (10.5-14.5); WBC 11.2 thou/uL (4.0-11.0)
[2020-04-28 16:05] LABS: ANION GAP 13 mmol/L (7-16); BUN 18 mg/dL (7-18); CALCIUM 9.5 mg/dL (8.5-10.1); CHLORIDE 98 mmol/L (98-107); CO2 27 mmol/L (21-32); CREATININE 1.1 mg/dL (0.6-1.0); GLUCOSE 105 mg/dL (74-106); POTASSIUM 3.6 mmol/L (3.5-5.1); SODIUM 138 mmol/L (136-145)
[2020-04-28 16:09] LABS: ALBUMIN 3.3 g/dL (3.4-5.0); SGOT 11 U/L (15-37); SGPT 13 U/L (14-59); TOTAL BILIRUBIN 0.9 mg/dL (0.2-1.0); TROPONIN-I <0.06 ng/mL (<0.06)
[2020-04-28] MEDS ORDERED: DESYREL150 MG PO (21:52)
[2020-04-29 00:34] VITALS: BP 127/56
[2020-04-29 06:09] LABS: CALCIUM 8.9 mg/dL (8.5-10.1); CREATININE 1.1 mg/dL (0.6-1.0); POTASSIUM 3.3 mmol/L (3.5-5.1)
[2020-04-29 06:37] LABS: HEMATOCRIT 37.5 % (37.0-47.0); HEMOGLOBIN 12.5 gm/dL (12.0-15.0); MCH 29.4 pg (26.0-34.0); MCHC 33.2 g/dL (28.0-37.0); MCV 88.6 fL (80.0-100.0); RBC 4.23 mil/uL (4.20-5.00); RDW 14.3 % (10.5-14.5); WBC 5.1 thou/uL (4.0-11.0)
[2020-04-29 07:03] VITALS: BP 129/56
[2020-04-29 07:42] VITALS: BP 125/60
[2020-04-29 07:45] VITALS: BP 135/84
--- NOTE | 2020-04-29 09:49 | NUR ---
ASSUMED PT CARE UPON TRANSFER TO UNIT AT 0810. PT VSS, A&OX4. PATIENT TEARFUL, BUT ACLM AND COOPERATIVE WITH STAFF. PATIENT REQUIRING 2 L OXYGEN VIA NC. SKIN IS INTACT. REPORTING NO PAIN AT THIS TIME. REPORTS FATIGUE FROM NOT SLEEPING IN OVER 24 HOURS. AMBULATORY TO THE BATHROOM WITH GAIT BELT AND ONE PERSON ASSIST. REPORTS HISTORY OF SLEEP APNEA. PATIENT IS CONTINENT. IV TO RIGHT AC IS SALINE LOCKED AND PATENT. FALL PRECAUTIONS IN PALCE, SCD'S ON. ADMISISON COMPLETED.
--- NOTE | 2020-04-29 11:11 | EKG ---
[place] [address] [email or web address] [place] [address] ELECTROCARDIOGRAM REPORT Name: ANAND POON Room #: 442-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1940 Requested By: Michelle Nunez Order Number: [id number] MD: Tank Davenport Measurements Intervals [place] Rate: 99 P: 91 AR: 142 QRS: 49 QRSD: 88 T: 179 QT: 323 QTc: 415 Interpretive Statements Sinus tachycardia Multiple premature complexes, vent & supraven Consider left atrial enlargement LVH with secondary repolarization abnormality Compared to ECG 07/24/2017 04:48:31 Sinus rhythm no longer present Possible ischemia no longer present Electronically Signed On 04-29-2020 11:11:44 CDT by Tank Davenport [email or web address] <ELECTRONICALLY SIGNED> By: Tank Davenport MD, FACC 04/29/20 1111 1439 1439 Tank Davenport MD, [facility] /EPI
--- NOTE | 2020-04-29 13:35 | NUR ---
ASSESSMENT: CM REVIEWED CHART AND MET WITH PATIENT. PT WAS ADMITTED DUE TO COPD EXACERBATION. PT REPORTS THAT SHE LIVES IN A HOUSE WITH HER DAUGHTER AND GRANDCHILDREN. PT REPORTS HAVING TWO STEPS TO ENTER THE HOME AND NO STEPS TO USE ONCE INSIDE. PT REPORTS SHE NORMALLY AMBULATES INDEPENDENTLY BUT SOMEONE GAVE HER A WAlker in the PAST IF NEEDED.PT HAS OXYGEN ARRANGED AT HOME THROUGH [facility] AND REPORTS SHE NORMALLY WEARS ABOUT 2L. PT REPORTS SHE HAS NO HX OF HH OR BEING TO A SNF. CM DISCUSSED ROLE. PT IS HOPEFUL SHE WILL HAVE NO NEEDS FROM CM AT DISCHARGE. ST/OT/PT EVALUATING PATIENT.
[2020-04-29 16:33] VITALS: BP 150/62
[2020-04-29 20:15] VITALS: BP 141/63
[2020-04-30] VITALS: BP 138/62
[2020-04-30 03:30] VITALS: BP 136/71
--- NOTE | 2020-04-30 05:29 | NUR ---
PT AOX4 WITH INTERMITTENT FORGETFULNESS. PT REPORTS 3/10 BACK PAIN. PT REFUSING PRN PO APAP Q4HR. PT DENIES SOB WHILE ON 1.5-3L O2 VIA NC. PT TOLERATING PO INTAKE OF FLUIDS AND HEART HEALTHY DIET WITHOUT ISSUE. PT WITHOUT NAUSEA OR EMESIS. PT AMBULATING WITH X1 ASSIST TO BATHROOM, RESTING IN BED OTHERWISE. FREQUENT REPOSITIONING ENCOURAGED WHILE IN BED, PT NOTED TO SHIFT INDEPENDENTLY WHILE IN BED. PT NOTED TO HAVE RESTLESSNESS THROUGHOUT NIGHT. PT EXPRESSES CONCERN WITH INABILITY TO SLEEP FOR 3DAYS. ONCALL CORPORATE ETHICS OFFICER NOTIFIED X2, INITIALLY EMAR UPDATED WITH ONETIME PO BENADRYL, GIVEN WITHOUT EFFECT, RECEIVED ORDER FOR ONETIME PO 5MG AMBIEN. SLIGHT EFFECT NOTED AFTER AMBIEN ADMINISTRATION PT CONTINUED WITH INTERMITTENT RESTLESSNESS WHILE AWAKE. PT ATTEMPTING TO GIVE MONEY ($40) TO STAFF, DIFFICULT TO REDIRECT, CHARGE NURSE NOTIFIED, MONEY ($40) PLACED IN PT PERSONAL BOOK AT PT BEDSIDE. PT ENCOURAGED TO NOTIFY STAFF FOR ALL NEEDS, CALL LIGHT WITHIN REACH, BED ALARM ON, BED LOCKED IN LOWEST POSITION, FREQUENT MONITORING WILL CONTINUE.
[2020-04-30 06:44] LABS: CREATININE 0.9 mg/dL (0.6-1.0); MAGNESIUM 2.5 mg/dL (1.8-2.4); POTASSIUM 3.7 mmol/L (3.5-5.1)
[2020-04-30 07:45] VITALS: BP 137/75
--- NOTE | 2020-04-30 11:12 | NUR ---
ON-GOING ASSESSMENT: CM REVIEWED CHART AND SPOKE WITH ATTENDING. PT REMAINS ON IV STEROIDS. CM DISCUSSED HH WITH PATIENT AND BENEFITS OF IT AT DISCHARGE. PT DECLINING HOME HEALTH STATING SHE LIVES WITH HER DAUGHTER AND SHE DOES NOT WANT IT OR FEEL IT WILL BE BENEFICIAL TO HER AT THIS TIME. CM NOTIFIED ATTENDING. PT WILL LIKELY BE HERE A FEW DAYS. PT ALREADY HAS OXYGEN ARRANGED AT HOME. PT DENIES HAVING ANY NEEDS FROM CM AT DISCHARGE. CM WILL CONTINUE TO FOLLOW TO ASSIST NEEDED. ATTENDING STATING PT WILL POSSIBLY BE HERE THROUGH THE WEEKEND.
[2020-04-30 15:22] VITALS: BP 137/75
[2020-04-30 16:05] VITALS: BP 138/66
--- NOTE | 2020-04-30 20:12 | NUR ---
Assumed care of pt at 0700. Pt a&ox4. On 3L O2. Talked to pt's daughter earlier in the day and updated on pt's status. SBA to the toilet. Scheduled breathing treatments. Call light within reach. Fall precautions in place. Will continue to monitor.
--- NOTE | 2020-05-01 04:52 | NUR ---
pt alert x4 c/o IV abt burning @ site.IV site assesed no s/o of inflitration no swelling no redness no warmth noted. unable to reassure Iv site had no issues. nurse started IV site at forearm right side. discontinued IV site RAC. provided reassurance to pt. pt was noted to have increased anxiety crying and shaking. pt was given prn xanax @ 2210. pt sat on side of bed until 0200 then noted lying in bed with eyes closed. O2 @ 3L n/c.
[2020-05-01 08:53] VITALS: BP 140/66
[2020-05-01] MEDS ORDERED: LEVOFLOXACIN500 MG PO (13:13)
[2020-05-01] MEDS ORDERED: ACETAMINOPHEN325 M1 PO (13:13)
[2020-05-01] MEDS ORDERED: PREDNISONE 20 M20 M1 PO (13:13)
== END 2020-05-01 16:04 | disposition home health service (06) | DRG 193 ==
LOC: ER 14:31 → EROBS 19:32 → 4S 19:32 → ER 19:32 → EROBS 19:32 → 4S 04-29 07:43 → EROBS 04-29 07:45 → 4S 04-29 07:45 → EROBS 04-30 11:00 → 4S 04-30 11:00
PROVIDERS: Nurse Practitioner Family; ADMIT Internal Medicine; ATTEND Internal Medicine
DX: J18.9 Pneumonia, unspecified organism (principal); J96.21 Acute and chronic respiratory failure with hypoxia; J44.1 Chronic obstructive pulmonary disease with (acute) exacerbation; J44.0 Chronic obstructive pulmonary disease with (acute) lower respiratory infection; I10 Essential (primary) hypertension; E78.5 Hyperlipidemia, unspecified; F32.9 Major depressive disorder, single episode, unspecified; K21.9 Gastro-esophageal reflux disease without esophagitis; G47.33 Obstructive sleep apnea (adult) (pediatric); F17.210 Nicotine dependence, cigarettes, uncomplicated; I25.10 Atherosclerotic heart disease of native coronary artery without angina pectoris; K44.9 Diaphragmatic hernia without obstruction or gangrene; I73.9 Peripheral vascular disease, unspecified; R91.1 Solitary pulmonary nodule; R53.81 Other malaise; Z79.82 Long term (current) use of aspirin; Z90.710 Acquired absence of both cervix and uterus; Z98.42 Cataract extraction status, left eye; Z98.41 Cataract extraction status, right eye; Z86.14 Personal history of Methicillin resistant Staphylococcus aureus infection; Z88.8 Allergy status to other drugs, medicaments and biological substances; Z95.820 Peripheral vascular angioplasty status with implants and grafts; Z79.899 Other long term (current) drug therapy; Z20.822 Contact with and (suspected) exposure to COVID-19
CPT/HCPCS: 10195

== ENCOUNTER 2020-07-18 16:20 | Inpatient (IN) | payer OTHER ==
[~2020-07-18] VITALS: Ht 157.5 cm; Wt 55.8 kg
[~2020-07-18 16:20] MED LIST changes: +ACETAMINOPHEN325 M1 PO; -ASPIR 8181 MG PO; +CHILDREN'S ASPI81 M1 PO; +DESYREL150 MG PO; +LEVOFLOXACIN500 MG PO; +PREDNISONE 20 M20 M1 PO
[2020-07-18 16:25] VITALS: BP 166/78
[2020-07-18 17:36] LABS: BASOPHILS 0.4 % (0.0-2.0); EOSINOPHILS 0.4 % (0.0-3.0); HEMATOCRIT 39.8 % (37.0-47.0); HEMOGLOBIN 13.3 gm/dL (12.0-15.0); LYMPHOCYTES 26.5 % (24.0-44.0); MCH 29.2 pg (26.0-34.0); MCHC 33.4 g/dL (28.0-37.0); MCV 87.6 fL (80.0-100.0); PLATELET COUNT 188 thou/uL (150-400); POLYS 66.7 % (36.0-66.0); RBC 4.55 mil/uL (4.20-5.00); RDW 14.2 % (10.5-14.5); WBC 7.5 thou/uL (4.0-11.0)
[2020-07-18 17:40] LABS: ANION GAP 7 mmol/L (7-16); BUN 13 mg/dL (7-18); CALCIUM 9.2 mg/dL (8.5-10.1); CHLORIDE 103 mmol/L (98-107); CO2 30 mmol/L (21-32); GLUCOSE 104 mg/dL (74-106); POTASSIUM 3.9 mmol/L (3.5-5.1); SODIUM 140 mmol/L (136-145)
[2020-07-18 17:50] LABS: ALBUMIN 3.6 g/dL (3.4-5.0); SGOT 15 U/L (15-37); SGPT 12 U/L (14-59); TOTAL BILIRUBIN 0.5 mg/dL (0.2-1.0); TOTAL PROTEIN 7.7 g/dL (6.4-8.2); TROPONIN-I <0.06 ng/mL (<0.06)
[2020-07-18 18:05] LABS: BE(vivo) 1.5 mmol/L (-2 to +3); HCO3 26.2 mmol/L (22.0-26.0); PCO2 41.8 mmHg (35.0-45.0); PO2 66.5 mmHg (80.0-100.0); pH 7.415 (7.360-7.450); sO2 93.4 % (92.0-98.0)
[2020-07-18 18:46] LABS: URINE BILIRUBIN NEGATIVE (Negative); URINE BLOOD TRACE (Negative); URINE CLARITY CLEAR; URINE COLOR YELLOW; URINE GLUCOSE-RANDOM* NEGATIVE (Negative); URINE KETONES NEGATIVE (Negative); URINE LEUKOCYTES-REFLEX 1+ (Negative); URINE NITRITE-REFLEX NEGATIVE (Negative); URINE PROTEIN (DIPSTICK) NEGATIVE (Negative); URINE SPECIFIC GRAVITY 1.015 (1.005-1.035); URINE UROBILINOGEN 0.2 E.U./dl (0.2-1.0)
[2020-07-18 18:47] LABS: BACTERIA-REFLEX None Seen /HPF (None Seen); CASTS None Seen /LPF (None Seen); CRYSTALS None Seen /LPF (None Seen); MUCUS None Seen strn/LPF (None Seen); SQUAMOUS 0-3 Few /LPF (0-3); URINE RBC None Seen /HPF (NONE SEEN); URINE WBC-REFLEX 6-15 Few /HPF (0-5)
[2020-07-18 19:38] VITALS: BP 190/70
[2020-07-18 20:19] VITALS: BP 190/70
[2020-07-18 20:40] VITALS: BP 148/64
--- NOTE | 2020-07-18 22:00 | NUR ---
RECIEVED PT VIA IVÁN FROM ED UPON ARRIVAL TO ROOM 216 PT RESP LABORED AT 26 WITH PERCH LIP BREATHING NOTED WHEEZES THROUHGOUT 02 @ 3L NC . AFTER PT RESTED IN BED RESP LESS LABORED, PT VERY ANXIOUS AND CRYING AT TIMES, PT STATES SHE IS HAVING FAMILY ISSUE AND WISH TO NIGHT TALK ABOUT THE PROBLEMS. INSPECTOR PLATING PLACED ON SHOWS SNR WITH PAC . SAT 94 %. RESP TREATMENT GIVEN BY RT. PT THEN BEGAIN TO CRY AND STATES SHE FEEL LIKE SHE WANT TO JUMP OUT OF SKIN AND FEELS SHE NEED SOMETHING TO CALM HER DOWN. ESTRELLITA SCRIPT GIRL CALLED ORDER RECIEVED FOR HALDOL IV . MEDICATION GIVEN, PT SOON RELAXED AND APPEARS TO BE SLEEPING. RESP EASY 18 HEART RATE 86. WILL CONITNUE TO MONITOR AND WILL REPORT CHANGES OR ABNORMAL FINDINGS.
[2020-07-19 04:00] VITALS: BP 131/52
--- NOTE | 2020-07-19 07:23 | EKG ---
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1940 Requested By: Jimenez Ramirez Order Number: [id number] MD: Tank Davenport Measurements Intervals [place] Rate: 70 P: 80 [place]: 146 QRS: 43 QRSD: 89 T: 94 QT: 400 QTc: 432 Interpretive Statements Sinus rhythm Consider left ventricular hypertrophy Nonspecific T abnrm, anterolateral leads Compared to ECG 04/28/2020 14:39:56 Sinus tachycardia no longer present Early repolarization no longer present Electronically Signed On 07-19-2020 7:23:44 CDT by Tank Davenport [email or web address] <ELECTRONICALLY SIGNED> By: Tank Davenport MD, [facility] 07/19/20 07 1650 1650 Tank Davenport MD, [facility] /EPI
[2020-07-19 09:08] VITALS: BP 135/87
[2020-07-19 12:24] VITALS: BP 150/62
--- NOTE | 2020-07-19 14:48 | NUR ---
PT ADMITTED RELATED TO COPD AND UTI. CM REVIEWED CHART AND SPOKE WITH CARE TEAM. CM MET WITH PT AT BEDSIDE THIS DAY. PT APPERARED TO BE A&O X4. CM ROLE INTRODUCED. PT INDICATED THAT SHE LIVES IN A HOUSE WITH HER DTR, SON IN LAW, AND 2 GRAND KIDS. PT INDICATED 2 STEPS TO ENTER AND NO STEPS INSIDE. PT INDICATED SHE SHE HAD USED A 4WW TO ASSIST WITH MOBILITY PHARMACY DATA ANALYST. PT HAS HOME O2 2L THROUGH [facility]. PT ALSO HAS HOME CPAP BUT INDICATED THAT SHE HADN'T BEEN USING IT PHARMACY DATA ANALYST. PT HAS SC. PT HAD DC'S HOME 05/01 WITH [facility] BUT PT HAD REFUSED THEM THEY CALLED DAY OF DC TO SCHEDULE ASSESSMENT VISIT AND PT WASN'T READY FOR THEM. CM CALLED AND SPOKE WITH PT'S DTR AND SHE CONFIMRED THE ABOVE. PT INDICATED SHE PLANS TO RETURN HOME ONCE MEDICALLY STABLE. CM NOTIFIED [facility] AND CM TO FAX REFERRAL. CM FOLLOWING REGARDING DC PLANNING.
[2020-07-19 16:51] VITALS: BP 122/63
--- NOTE | 2020-07-19 18:55 | NUR ---
RN ASSUMED PT'S CARE AT 0700AM, PT IS A&OX4, PT IS ON O2 2L/MIN/NC, PT IS CONTINUING IV ABX, PT'S SOB HAS IMPROVED, PT'S VS ARE STABLE,PT GETS UP TP BSC WITH ASSIST,
[2020-07-19 20:03] VITALS: BP 140/61
[2020-07-20 03:19] VITALS: BP 146/69
[2020-07-20 04:45] LABS: HEMATOCRIT 35.6 % (37.0-47.0); HEMOGLOBIN 11.8 gm/dL (12.0-15.0); MCH 29.4 pg (26.0-34.0); MCHC 33.2 g/dL (28.0-37.0); MCV 88.6 fL (80.0-100.0); RBC 4.01 mil/uL (4.20-5.00); RDW 14.3 % (10.5-14.5); WBC 10.7 thou/uL (4.0-11.0)
[2020-07-20 04:51] LABS: CALCIUM 8.6 mg/dL (8.5-10.1); POTASSIUM 4.4 mmol/L (3.5-5.1)
--- NOTE | 2020-07-20 06:45 | NUR ---
PATIENTS CARES WERE ASSUMED AT SHIFT CHANGE. PATIENT WAS ASSESSED AND MEDS WERE PASSED. PATIENT REQUESTED TO HAVE HER DOCTOR ORDER HER A SLEEPING PILL. SHE STATED SHE WAS GIVEN SOMETHING IV BUT THE NURSE WAS UNABLE TO SEE ANY DOCUMENTATION OF IT.
[2020-07-20 09:07] VITALS: BP 148/79
--- NOTE | 2020-07-20 12:37 | NUR ---
PT ALERT AND ORIENTED TIMES FOUR. VSS, SR ON TELE, PT C/O HEADACHE PRN PAIN MEDICATIONS GIVEN WITH GOOD RELEIF. PT WORKED WELL WITH PT/OT TODAY. PT TOLERATES MEDS AND MEALS. PT SLOWLY PROGRESSING TOWRADS POC GOALS.
[2020-07-20 12:45] VITALS: BP 149/68
[2020-07-20 16:00] VITALS: BP 150/78
--- NOTE | 2020-07-20 17:33 | NUR ---
Sherine with [facility] care met with patient today. She reports patient overwhelmed from dc from hospital last admission. She reports that is why she refused HH care. She is agreeable to [facility] at al.
[2020-07-20 19:00] VITALS: BP 150/68
[2020-07-21 05:01] VITALS: BP 154/66
[2020-07-21 05:19] LABS: HEMATOCRIT 36.9 % (37.0-47.0); MCH 28.9 pg (26.0-34.0); MCHC 32.4 g/dL (28.0-37.0); MCV 89.2 fL (80.0-100.0); RBC 4.14 mil/uL (4.20-5.00); RDW 14.9 % (10.5-14.5); WBC 7.3 thou/uL (4.0-11.0)
[2020-07-21 05:59] LABS: CREATININE 0.9 mg/dL (0.6-1.0); POTASSIUM 4.8 mmol/L (3.5-5.1)
[2020-07-21 08:11] VITALS: BP 162/66
--- NOTE | 2020-07-21 10:10 | NUR ---
Received awake on bed. Due medications given as prescribed, able to swallow meds w/o difficulty. On O2 at 2lpm via nasal cannula. On telemetry; no complains and signs of chest pain, crushing sensation and heaviness. Assisted in ADLs. On blood sugar monitoring, taken and recorded accordingly. Falls bundle in place. Continent of bowel and bladder, able to use bedside commode with standby assist; able to have a bowel movement today. With SL at L FA- on IV antibiotics. On heart healthy diet- tolerating well; encouraged and assisted in eating and drinking; no nausea, no vomiting and no abdominal pain noted. No complains of pain made during assessment. To continue monitoring patient.
[2020-07-21 10:20] VITALS: BP 147/86
--- NOTE | 2020-07-21 14:34 | NUR ---
met with patient to discuss dc planning. Patient reports she feels she should go somewhere for rehab prior to home. 5N to eval. Gave patient skilled list to review. casemgt following.
[2020-07-21 15:34] VITALS: BP 151/74; BP 167/58
[2020-07-21 19:38] VITALS: BP 182/66
[2020-07-21 23:53] VITALS: BP 177/68
[2020-07-22 03:51] VITALS: BP 147/59
[2020-07-22 07:22] VITALS: BP 145/58
[2020-07-22] MEDS ORDERED: PULMICORT0.5 MG/21 INH (13:53)
[2020-07-22] MEDS ORDERED: VITAMIN D21250 MCG PO (13:54)
[2020-07-22] MEDS ORDERED: PREDNISONE 10 M10 M1 PO (13:54)
--- NOTE | 2020-07-22 14:49 | NUR ---
[facility] patient and she is accepted to transfer to today. Patient reports she will notify her family herself. Updated phys no further needs
[2020-07-22 15:21] VITALS: BP 154/47
--- NOTE | 2020-07-22 18:59 | NUR ---
PT IS AXOX4, PLEASANT. VSS, AFEBRILE, SR ON MONITOR. PT/OT CONSULTED. DR MCINTYRE CONSULTED. CASE MGMT CONSULTED. PT TRANSFERRED TO FOR REHAB. PT IS UPX1 STDBY ASST FOR BSC. PT USING WALKER, GAIT BELT, AND 2LNC FOR ACTIVITIES. PT BASELINE 2LNC. FALL PRECAUTIONS IN PLACE. REPORT GIVEN TO . NO CONCERNS AT THIS TIME.
== END 2020-07-22 16:18 | DRG 871 ==
LOC: ER 16:20 → EROBS 19:26 → 2N 19:26
PROVIDERS: Hospitalist; Internal Medicine; Physician Assistant; ADMIT Hospitalist; ATTEND Hospitalist
DX: A41.9 Sepsis, unspecified organism (principal); J96.21 Acute and chronic respiratory failure with hypoxia; J44.1 Chronic obstructive pulmonary disease with (acute) exacerbation; N39.0 Urinary tract infection, site not specified; F32.9 Major depressive disorder, single episode, unspecified; K21.9 Gastro-esophageal reflux disease without esophagitis; E78.5 Hyperlipidemia, unspecified; I10 Essential (primary) hypertension; G47.33 Obstructive sleep apnea (adult) (pediatric); I73.9 Peripheral vascular disease, unspecified; I25.10 Atherosclerotic heart disease of native coronary artery without angina pectoris; R53.81 Other malaise; G47.00 Insomnia, unspecified; Z20.822 Contact with and (suspected) exposure to COVID-19; E55.9 Vitamin D deficiency, unspecified; K44.9 Diaphragmatic hernia without obstruction or gangrene; Z86.14 Personal history of Methicillin resistant Staphylococcus aureus infection; Z90.710 Acquired absence of both cervix and uterus; Z98.42 Cataract extraction status, left eye; Z98.41 Cataract extraction status, right eye; Z88.8 Allergy status to other drugs, medicaments and biological substances; Z87.891 Personal history of nicotine dependence; Z79.82 Long term (current) use of aspirin; Z79.899 Other long term (current) drug therapy
CPT/HCPCS: 10081

== ENCOUNTER 2020-07-22 14:20 | Inpatient (IN) | payer OTHER ==
[~2020-07-22] VITALS: Ht 157.5 cm; Wt 56.2 kg
[~2020-07-22 14:20] MED LIST changes: +PREDNISONE 10 M10 M1 PO; +PULMICORT0.5 MG/21 INH; +VITAMIN D21250 MCG PO
[2020-07-22 16:38] VITALS: BP 193/72
--- NOTE | 2020-07-22 18:28 | NUR ---
NEW ADMISSION FROM CCU. CAME IN WC ACCOMP BY HOSP STAFF. ALERT AND ORIENTATED X 4. 0N 2L 02 WITH A HISTORY OF COPD AND SMOKING. HAS A PRODUCTIVE COUGH AND WITH SOME BLOOD. REPORTED MURRAY. DENIES ANY NAUSEA, DIZZINESS. REPORT PAIN IS MORE FRONTAL, NON THROBBING AND NO PHOTOPHOBIA. BP 193/72 HR 69 ON ADMISSION. ORDERS RECEIVED FOR HYDRALAZINE PRN. RECHECK BP 153/72. WAS GIVEN TYLENOL PRIOR TO TRANSFER. NOTED BLOOD SUGAR AT 192 AND ON PREDNISONE. ASSESSMENT DONE AND NO SKIN ISSUE NOTED EXCEPT BRUISING. UP WITH A WALKER. WALKED TO THE BATHROOM AND HAD DIURESED AND HAD BM 07/22. CALL LIGHT WITHIN REACH. ALL QUESTIONS AND CONCERNS ADDRESSED.
--- NOTE | 2020-07-23 03:26 | NUR ---
UP TO TOILET WITH ONE PERSON, GAIT BELT, WALKER, AND O2 2L WITH EXTENSION. DEMONSTRATED FLUTTER VALVE AND HAD MODERATE PRODUCTIVE COUGH AFTERWARDS. LUNGS OTHERWISE DIMINISHED. BLOOD GLUCOSE CHECK AT HS = 121. PATIENT DOES NOT HAVE SSI ORDERED AT THIS TIME WITH PO PREDNISONE DOSE = 10 MG DAILY
[2020-07-23 06:01] LABS: HEMATOCRIT 37.6 % (37.0-47.0); HEMOGLOBIN 12.4 gm/dL (12.0-15.0); MCH 29.1 pg (26.0-34.0); MCV 88.2 fL (80.0-100.0); RBC 4.26 mil/uL (4.20-5.00); RDW 14.3 % (10.5-14.5); WBC 8.3 thou/uL (4.0-11.0)
[2020-07-23 06:02] VITALS: BP 151/68
[2020-07-23 06:25] LABS: CALCIUM 8.8 mg/dL (8.5-10.1); POTASSIUM 3.9 mmol/L (3.5-5.1)
[2020-07-23 07:46] VITALS: BP 193/72
--- NOTE | 2020-07-23 07:53 | NUR ---
Chart review, Ramiro visited with eugenio at bedside. A & O x 3, prefers to go by eugenio, and able to make her needs know. Intro to cm, team meeting and dcp. Lives in house with her daughter, son in law and grandkids. 2 steps to enter the home. 4ww, home o2 and cpap. uses [facility]. [facility] was ordered before, but she has refused them once she gets home. Will cont. following as needed for dc needs.
--- NOTE | 2020-07-23 09:24 | NUR ---
ASSUMED CARE AT 0700. PATIENT IS ALERT AND ORIENTED X4. PATIENT HANDLEY'S, CLOUD ADMINISTRATOR ARE EQUAL. LUNGS ARE DEMINISHED WITH OCCASIONAL COUGH. PATIENT CONTINUES ON 02 AT 2L PER N/C. PATIENT CONTINUES ON RESPIRATORY TX. PATIENT COUGHED UP BLOODY SPUTUM THIS A.M. PATIENT AMBULATES WITH GAIT BELT AND WALKER TO THE BATHROOM TO VOID CRISTIAN COLORED URINE. PATIENT C/O FREQ AND THINKS SHE SHOULD STILL BE ON ABT FOR TX OF UTI. WILL REVIEW WITH N.P. ON ROUNDS. PATIENT HAS S.L. IN HER LEFT FORARM. IV SITE WITHOUT REDNESS OR SWELLING. FALL AND SAFETY PROTOCOLS IN PLACE. DENIES PAIN AT THIS TIME. CONTINUES TO PROGRESS TOWARDS D/C GOALS. WILL CONTINUE TO MONITER.
[2020-07-23 20:32] VITALS: BP 170/76
--- NOTE | 2020-07-24 01:37 | NUR ---
UP TO TOILET WITH WALKER, GAIT BELT, AND MIN ASSIST TO TOILET. NOTES STREAK OF BLOOD IN SPUTUM, REASSURED THAT DR ARCHULETA WILL KEEP TRACK OF HER LUNGS WHILE SHE IS HERE. VOIDING LESS FREQUENTLY SO FAR TONIGHT. O2 2L PNC
[2020-07-24 05:19] LABS: ABSOLUTE NEUTROPHILS 3.6 thou/uL (1.4-8.2); EOSINOPHILS 0.2 % (0.0-3.0); HEMATOCRIT 37.1 % (37.0-47.0); HEMOGLOBIN 12.2 gm/dL (12.0-15.0); LYMPHOCYTES 37.4 % (24.0-44.0); MCH 29.3 pg (26.0-34.0); MCHC 32.8 g/dL (28.0-37.0); MCV 89.4 fL (80.0-100.0); MONOCYTES 8.5 % (1.0-8.0); PLATELET COUNT 176 thou/uL (150-400); POLYS 53.9 % (36.0-66.0); RBC 4.15 mil/uL (4.20-5.00); RDW 14.5 % (10.5-14.5); WBC 6.6 thou/uL (4.0-11.0)
[2020-07-24 05:53] LABS: CALCIUM 8.4 mg/dL (8.5-10.1); MAGNESIUM 2.4 mg/dL (1.8-2.4); POTASSIUM 4.1 mmol/L (3.5-5.1)
[2020-07-24 08:00] VITALS: BP 124/51
--- NOTE | 2020-07-24 08:56 | NUR ---
ASSUMED CARE AT 0700. PATIENT IS ALERT AND ORIENTED X4. PATIENT HANDLEY'S, LOCAL SUPERINTENDENT ARE EQUAL. LUNGS ARE DEMINISHED ON RIGHT. CONTINUES ON 02 AT 2L PER N/C. PATIENT CONTINUES ON RESPIRATORY TX. UP WITH ASSIST OF 1 STAFF WITH GAIT BELT AND WALKER TO THE BATHROOM TO VOID CRISTIAN COLORED URINE. FALL AND SAFETY PROTOCOLS IN PLACE. DENIES PAIN AT THIS TIME. CONTINUES TO PROGRESS SLOWLY TOWARDS D/C GOALS. S.L. IS PATIENT IN HER LEFT FORARM. WILL CONTINUE TO MONITER.
--- NOTE | 2020-07-24 17:21 | NUR ---
TOLD PT THAT SHE NEEDED TO GET UP IN CHAIR FOR DINNER. PT REFUSED AND SAID NOT I DON'T WANT TO SIT IN CHAIR, PT REFUSED. PT SITTING ON SIDE OF BED WITH ALARM ON.
[2020-07-24 19:39] VITALS: BP 133/59
--- NOTE | 2020-07-25 00:07 | NUR ---
PT ALERT AND ORIENTED X 4. 02 ON AT 2L PER NC CONT. PT C/O HEADACHE AT START OF SHIFT. TYLENOL GIVEN ORDERED. BED ALARM ON FOR SAFETY. PT CHECKED ON HOURLY ROUNDS.
[2020-07-25 07:15] VITALS: BP 124/45
--- NOTE | 2020-07-25 10:27 | NUR ---
ASSUMED CARE AT 0700. PATIENT IS ALERT AND ORIENTED X4. PATIENT HANDLEY'S, MINE SURVEYOR ARE EQUAL. LUNGS ARE DEMINISHED ON RIGHT. PATIENT CONTINUES ON 02 AT 2L PER N/C AND IS ON RESPIRATORY TX. PATIENT CONTINUES ON ABT FOR RIGHT LOWER LOBE PNEMONIA. ABD IS SOFT WITH BSX4. UP TO THE BR TO VOID CRISTIAN COLORED URINE, AND HAVE BM. PATIENT IS UP WITH WALKER AND GAIT BELT AND ASSIST OF 1 STAFF. FALL AND SAFETY PROTOCOLS IN PALCE. DENIES PAIN AT THIS TIME. CONTINUES TO PROGRESS SLOWLY TOWARDS D/C GOALS. WILL CONTINUE TO MONITER.
[2020-07-25 20:01] VITALS: BP 146/44
--- NOTE | 2020-07-26 03:39 | NUR ---
UP TO VOID EVERY 60-90 MINUTES. STEADY ON FEET USING WALKER AND 2 LITERS OF OXYGEN PNC. PLEASANT AND APPRECIATES BREATHING TREATMENTS.
[2020-07-26 07:40] VITALS: BP 143/73
--- NOTE | 2020-07-26 12:32 | NUR ---
ASSUMED CARE AT 0700. DID NOT SLEEP WELL LAST NIGHT. VIJAY DOORMAKER NOTIFIED REGARDING BREATHING TREATMENT AND PT INSOMNIA. ALSO REPORTED R SHOULDER PAIN SEC TO ROTATOR CUFF, TREATED WITH TYLENOL. APPETITE FAIR. HAD A BM TODAY. ON 2L 02. PARTICIPATING WITH THERAPY AND PROGRESSING TOWARDS GOAL. ON BREATHING RX.
[2020-07-26 20:00] VITALS: BP 160/68
--- NOTE | 2020-07-27 01:28 | NUR ---
UP TO TOILET WITH WALKER, STANDBY ASSIST WITH STEADY GAIT. REMAINS CONCERNED ABOUT HEMOPTYSIS, IS ON ANTIBIOTIC AND GUAIFENESIN. ATIVAN GIVEN FOR ANXIETY, TYLENOL FOR LEFT GROIN PAIN. CONTINUES ON O2 2L PNC
[2020-07-27 08:00] VITALS: BP 110/57; BP 137/66
--- NOTE | 2020-07-27 12:38 | NUR ---
team meeting, recommendation, dc 25th with Rachele wynn (pt, ot, st, and nursing). BPCI. will need to assist with medication at home.
[2020-07-27 19:25] VITALS: BP 144/61
--- NOTE | 2020-07-28 03:42 | NUR ---
ASSUMED CARE AT 1900 OF 07/27. PATIENT IS A&OX4, REPORTED A HEADACHE, PRN TYLENOL ADMNISTERED PER PATIENT REQUEST. CONTINUES ON 2L OF OXYGEN VIA NC, O2Sat REMAINING ABOVE 94%. STAND BY ASSIST FOR TRANSFERS AND AMBULATION, USING WALKER AND GB. PATIENT EXPRESSED SO ANXIOUS FEELING CONCERNING HER UPCOMING DISCHARGE, THERAPUTIC LISTENING PROVIDED, PRN ATIVAN ALSO ADMINISTERED TO HELP MANAGE ANXIETY. NO CONCERNS AT THIS TIME WILL CONTINUE TO MONITOR.
[2020-07-28 08:00] VITALS: BP 113/43
--- NOTE | 2020-07-28 08:01 | NUR ---
ASSUMED CARE AT 0700. PATIENT IS ALERT AND ORIENTED X4. PATIENT HANDLEY'S, OPERATOR SUPPLY ARE EQUAL. PATIENT HAS DEMINISHED BS ON RIGHT. PATIENT HAS RIGHT LOWER LOBE PNEUMONIA. PATIENT CONTINUES ON 02 AT 2L PER N/C. PATIENT CONTINUES ON RESPIRATORY TX Q 4 HRS/WA. ABD IS SOFT WITH BSX4. UP WITH ASSIST OF 1 TO BR TO VOID AND HAVE BM'S. FALL AND SAFETY PROTOCOLS IN PLACE. DENIES PAIN AT THIS TIME. CONTINUES TO PROGRESS TOWARDS D/C GOALS. PLAN D/C ON SUNDAY. WILL CONTINUE TO MONITER.
--- NOTE | 2020-07-28 11:46 | NUR ---
Ramiro visited with eugenio to verify her daughter mora phone number [phone], cm spoke with mora via phone call. Daughter verified that all family been sick, did not get covid tested r/t all had the covid vaccine, kids are fine now and just mora and spouse are still on the mend. she will need transport home, around 1 pm will be fine, she will be the only one home. Ramiro passed on information to bedside nurse. dc on Sunday with michele wynn (pt, ot, st, nursing ). BPCI.
[2020-07-28 19:22] VITALS: BP 145/71
[2020-07-29 07:15] VITALS: BP 148/60
--- NOTE | 2020-07-29 09:03 | NUR ---
ASSUMED CARE AT 0700. PATIENT IS ALERT AND ORIENTED X4. PATIENT HANDLEY'S, PIPELINE SUPERINTENDENT DIVISION ARE EQUAL. LUNGS ARE DEMINISHED IN THE BASES. PATIENT CONTINUES ON 02 AT 2L PER N/C. PATIENT CONTINUES ON RESPIRATORY TX. CONTINUES TO COUGH UP SMALL AMOUNTS OF BLOODY SPUTUM. ABD IS SOFTWITH BSX4. PATIENT IS SBA TO BATHROOM TO VOID CRISTIAN COLORED URINE. FALL AND SAFETY PROTOCOLS IN PLACE. DENIES PAIN AT THIS TIME. CONTINUES TO PROGRESS TOWARDS D/C GOALS. CONTINUES ON PO ABT FOR URI. WILL CONTINUE TO MONITER.
--- NOTE | 2020-07-29 14:37 | NUR ---
CM still trying to found single point cane to vouch for dc on . Cm found a hurry cane at the [facility] outpt therapy. cm spoke with physical therapy and she can use the hurry cane. Cm notified outpt therapy and will last picker hurry cane tomorrow prior to dc home.
[2020-07-29 19:40] VITALS: BP 154/65
--- NOTE | 2020-07-30 00:08 | NUR ---
PT ALERT AND ORIENTED X 4. AMB TO BR WITH CANE AND ASSIST X 1 WITHOUT DIFFICULTY. 02 0N AT 2L PER NC CONT. PT DENIES PAIN OR DISCOMFORT. BED ALARM ON FOR SAFETY. PT APPEARS TO BE SLEEPING ON HOURLY ROUNDS.
[2020-07-30 07:15] VITALS: BP 144/83
[2020-07-30] MEDS ORDERED: LEVOFLOXACIN500 MG PO (09:53)
[2020-07-30] MEDS ORDERED: PREDNISONE 10 M10 M1 PO (09:53)
[2020-07-30] MEDS ORDERED: TRAZODONE HCL100 MG PO (09:53)
[2020-07-30] MEDS ORDERED: PROBIOTIC1 EAC1 PO (09:53)
[2020-07-30] MEDS ORDERED: MUCINEX600 MG PO (09:53)
[2020-07-30 09:54] VITALS: BP 144/83
[2020-07-30] MEDS ORDERED: HYDRALAZINE 10M10 MG PO (10:11)
[2020-07-30 11:08] VITALS: BP 144/83
--- NOTE | 2020-07-30 12:30 | NUR ---
Assumed pt care at 7am.Pt in bed sleeping with o2 on at 2lnc.Pt woke up for breakfast around 8am.Assessment completed.vss.Pt took am meds after breakfast. Pt dc plan scheduled for 1pm but has to complete ct scan chest at out pt prior to dc home.Dc summary compile and reviewed with pt.Angelica took pt to ct at 1220.Transport to [employer] picker pt belongings at 1300.Pt dc from computer at 1230.
--- NOTE | 2020-07-30 16:14 | NUR ---
SURGICAL INSTRUMENT TECHNICIAN CALLED PATIENT'S DAUGHTER, ARTUR, AND EDUCATED HER RE: NEED FOR ASSISTANCE WITH MANAGING MEDICINE AND REMEMBERING TO TAKE IT ON TIME. ALSO EDUCATED RE: NEED TO ENCOURAGE COMPLETION OF HOME BREATHING TXs PATIENT WAS NOT PREVIOUSLY COMPLIANT. DAUGHTER WAS AGREEBLE AND STATED ALL INFORMATION WAS UNDERSTOOD.
--- NOTE | 2020-08-02 12:35 | H ---
[facility] [place] [address] HISTORY AND PHYSICAL Name: ANAND POON Room #: 515-P [facility] IN M.R.#: [id number] Admission: 07/22/20 Attend Phys: Glen Christensen MD Discharge: 07/30/20 Date of : 40 Report #: [id number] THIS REPORT FOR: cc: Keorn Olivares MD, Christopher B. MD Smithson,Glen Loyola MD ~ DOC #: [id number] Glen Christensen MD DATE OF SERVICE: 07/22/2020 HISTORY AND PHYSICAL/OVERALL PLAN OF CARE HISTORY OF PRESENT ILLNESS: The patient is an 80-year-old white female who was originally admitted on 07/18/2020 with increased shortness of breath, history of COPD, obstructive sleep apnea. She was diagnosed with acute on chronic respiratory failure and COPD exacerbation. She was noted to have weakness and generalized debilitation. She was treated with IV antibiotics and Solu-Medrol IV. She is noted to have significant functional deficits with pulmonary debilitation and has now been admitted for acute in-hospital inpatient rehabilitation. PAST MEDICAL HISTORY: COPD with O2 of 2 liters at night, peripheral vascular disease with fem-pop bypass, coronary artery disease, hypertension, dyslipidemia, obstructive sleep apnea, depression, MRSA face and back of neck in 2011. MEDICATIONS: Please see the full medication listing. ALLERGIES: CEFUROXIME, NITROFURANTOIN and NAPROXEN. SOCIAL HISTORY: Lives in a house 2 steps in with daughter, son-in-law and 2 teenage grandchildren. 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 Daughter is home during the day. REVIEW OF SYSTEMS: No current complaints of chest pain, shortness of breath or abdominal discomfort. PHYSICAL EXAMINATION: GENERAL: An 80-year-old white female in no obvious distress. VITAL SIGNS: Last recorded temperature 97.7, pulse 69, respirations 18, blood pressure 151/68. The patient is alert, pleasant. HEENT: Appeared to be benign. Cranial nerves are grossly intact. Nasal prong O2 is present. CHEST: Some decreased breath sounds, mild expiratory wheezes. CARDIOVASCULAR: Regular rate and rhythm. ABDOMEN: Bowel sounds positive, nontender. [facility] [address] [place] [address] HISTORY AND PHYSICAL Name: ANAND POON Room #: 515-P [facility] IN M.R.#: [id number] Admission: 07/22/20 Attend Phys: Glen Christensen MD Discharge: 07/30/20 Date of : 40 Report #: [id number] GENITOURINARY AND RECTAL EXAMINATION: Deferred. EXTREMITIES: Functional range of motion of the upper extremity. NEUROLOGIC: Strength is a grade 4- to 3+/5. Tone is intact. Lower extremities, no focal calf swelling, functional range of motion, strength is grade 3+ to 4-/5. DTRs trace to 1. She is min assist with basic transfers and can ambulate a short distance with a front-wheeled walker. ASSESSMENT: An 80-year-old white female with the following problem list: 1. Pulmonary debilitation. 2. Medical complexity with generalized debilitation. 3. Hypoxic respiratory failure. 4. Chronic obstructive pulmonary disease exacerbation. 5. Question of urinary tract infection. 6. Peripheral vascular disease. 7. Hypertension. 8. Hyperlipidemia. 9. History of Clostridium difficile colitis. 10. History of methicillin-resistant Staphylococcus aureus. 11. History of depression. PLAN: The patient has been admitted for acute in-hospital inpatient rehabilitation. Initial plan of care involves the interdisciplinary acute inpatient rehabilitation program with the goal of maximizing her functional independence, so she can hopefully return back to her prior living situation. Measurable functional goals would be for the patient to become modified independent with transfers, mobility and ADLs. Also to improve as far as cognition speech therapy has been added. Potential barriers would include her multiple medical comorbidities and decreased functional status. Prognosis is reasonably good with estimated length of stay probably 7-14 days. The patient meets diagnostic criteria for an acute in-hospital inpatient rehabilitation stay. She meets the medical necessity criteria and we will have the trial consultant physicians continue to follow. She does have the tolerance for therapies and has appropriate discharge goals back to the home setting. ADDENDUM: She is currently min assist for upper body dressing; contact guard for lower body dressing. Her transfers are min assist and she did ambulate up to 64 feet min assist with the front-wheeled walker. Speech therapy evaluation is underway. The overall plan of care is based on the pre-admission screen and information garnered from therapy assessments. 1. Estimated length of stay is probably 7-14 days as noted above. 2. Medical prognosis is reasonably good. 3. Anticipated interventions includes the interdisciplinary acute inpatient [address] [address] HISTORY AND PHYSICAL Name: ANAND POON Room #: 515-P [facility] IN M.R.#: [id number] Admission: 07/22/20 Attend Phys: Glen Christensen MD Discharge: 07/30/20 Date of : 40 Report #: [id number] rehabilitation program. 4. Anticipated functional outcomes would be for her to be modified independent with transfers, mobility and ADLs and improved cognition, so that she can return back to the home setting. 5. Discharge destination would be back to the home setting where she lives with her daughter and son-in-law as noted above. 6. Expected therapy by discipline includes PT, OT and speech 1 hour per day each five days a week throughout the duration of the acute inpatient rehabilitation stay. The patient's prognosis for significant practical improvement within a reasonable period of time appears good. Given the patient's complex medical condition and risk of further medical complication, rehabilitation services could not be safely provided at the lower level of care such as a nursing home facility. Glen Christensen MD DGS <ELECTRONICALLY SIGNED> By: Glen Christensen MD 08/02/20 1235 [id number] Glen Christensen MD /nt
--- NOTE | 2020-08-02 12:35 | HC ---
[facility] [place] [address] CONSULTATION Name: ANAND POON Room #: 515-P [facility] IN M.R.#: [id number] Admission: 07/22/20 Attend Phys: Glen Christensen MD Discharge: 07/30/20 Date of : 40 Report #: [id number] THIS REPORT FOR: cc: Keron Olivares MD, Christopher B. MD Smithson,Glen Loyola MD ~ DOC #: [id number] Glen Christensen MD DATE OF SERVICE: 07/22/2020 HISTORY OF PRESENT ILLNESS: This is an 80-year-old white female admitted with increased shortness of breath, history of COPD and obstructive sleep apnea. She was diagnosed with acute on chronic respiratory failure and COPD exacerbation. She is noted to have weakness and generalized debilitation. She has been treated with IV antibiotics, IV Solu-Medrol. We are seeing her in rehabilitation medicine consultation. PAST MEDICAL HISTORY: Includes COPD with O2 2 liters at night, peripheral vascular disease with fem-pop bypass, coronary artery disease, hypertension, dyslipidemia, obstructive sleep apnea, depression and MRSA face and back of neck in 2011. MEDICATIONS: Please see the full medication listing. ALLERGIES: CEFUROXIME, NITROFURANTOIN, NAPROXEN. 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 Daughter is home during the day. REVIEW OF SYSTEMS: No current complaints of chest pain, no shortness of breath or abdominal discomfort at rest. Complains of overall generalized weakness. PHYSICAL EXAMINATION: GENERAL: She is a pleasant 80-year-old white female in no obvious distress. VITAL SIGNS: Last recorded temperature 36.6, pulse 86, respirations 18, blood pressure 145/58. NEUROLOGIC: The patient is alert, pleasant, oriented, follows basic 1-step commands. Facies are symmetric. HEENT: Appeared to be benign. She has functional range of motion of both upper extremities with strength grade 4-/5 to 3+/5. DTRs are trace to 1. Lower extremities, no focal calf swelling functional range of motion, strength a grade 3+ to 4-/5. DTRs are trace to 1. She is transferring with min assist and she will ambulate a short distance min assist with a front-wheeled walker. IMPRESSION: An 80-year-old white female with the following problem list: [facility] [address] [place] [address] CONSULTATION Name: ANAND POON Room #: 515-P [facility] IN M.R.#: [id number] Admission: 07/22/20 Attend Phys: Glen Christensen MD Discharge: 07/30/20 Date of : 40 Report #: [id number] 1. Pulmonary debilitation. 2. Medical complexity with generalized debilitation. 3. Hypoxemic respiratory failure. 4. Chronic obstructive pulmonary disease exacerbation. 5. Question of urinary tract infection. 6. Peripheral vascular disease. 7. Hypertension. 8. Hyperlipidemia. 9. History of Clostridium difficile colitis. 10. History of methicillin-resistant Staphylococcus aureus. 11. History of depression. PLAN: Occupational therapy is to evaluate. We are considering the patient for an acute in-hospital inpatient rehabilitation stay. We will be glad to follow along with you regarding her rehab therapy needs. Glen Christensen MD DGS <ELECTRONICALLY SIGNED> By: Glen Christensen MD 08/02/20 1235 [id number] Glen Christensen MD /nt
== END 2020-07-30 12:00 | disposition home health service (06) | DRG 947 ==
PROVIDERS: Nurse Practitioner; ADMIT Physical Medicine & Rehabilitation; ATTEND Physical Medicine & Rehabilitation
DX: R53.81 Other malaise (principal); J96.21 Acute and chronic respiratory failure with hypoxia; J44.1 Chronic obstructive pulmonary disease with (acute) exacerbation; R04.2 Hemoptysis; I73.9 Peripheral vascular disease, unspecified; I16.0 Hypertensive urgency; E55.9 Vitamin D deficiency, unspecified; G47.33 Obstructive sleep apnea (adult) (pediatric); F32.9 Major depressive disorder, single episode, unspecified; I25.10 Atherosclerotic heart disease of native coronary artery without angina pectoris; I10 Essential (primary) hypertension; E78.5 Hyperlipidemia, unspecified; K21.9 Gastro-esophageal reflux disease without esophagitis; E53.8 Deficiency of other specified B group vitamins; R91.1 Solitary pulmonary nodule; G47.00 Insomnia, unspecified; Z88.8 Allergy status to other drugs, medicaments and biological substances; Z86.14 Personal history of Methicillin resistant Staphylococcus aureus infection; Z90.710 Acquired absence of both cervix and uterus
CPT/HCPCS: 10112

== ENCOUNTER → 2020-07-30 | Outpatient (CLI) | payer OTHER ==
[~2020-07-30] MED LIST changes: +HYDRALAZINE 10M10 MG PO; +PROBIOTIC1 EAC1 PO; +TRAZODONE HCL100 MG PO
== END ==
LOC: CAT 12:09
PROVIDERS: ATTEND Physical Medicine & Rehabilitation
DX: J43.9 Emphysema, unspecified (principal); R91.1 Solitary pulmonary nodule; R91.8 Other nonspecific abnormal finding of lung field; N28.89 Other specified disorders of kidney and ureter